=== PATIENT | female | born 1955 | race Caucasian/White ===

== ENCOUNTER 2022-02-12 09:26 | Day surgery (SDC) | payer BC, OTHER ==
[2022-02-05 13:35] VITALS: BMI 35.9
[2022-02-12] MEDS ORDERED: LIDOCAINE HCL/PF 2% SDV 5ML VIAL ONE (10:39)
[2022-02-12] MEDS ORDERED: PROPOFOL 60 ML ONE (10:39)
[2022-02-12] MEDS ORDERED: ONDANSETRON 4 MG/2 ML VIAL ONE (11:46)
[2022-02-12 12:28] VITALS: TEMP 97.4
[2022-02-12 12:31] VITALS: RESP 18
[2022-02-12 12:49] VITALS: BP 118/60; PULSE 58
== END 2022-02-12 12:15 | disposition short-term general hospital (02) ==
LOC: FASU-ENDO 09:26
PROVIDERS: ATTEND Internal Medicine Gastroenterology
PROC: 0DBL8ZX Excision of Transverse Colon, Via Natural or Artificial Opening Endoscopic, Diagnostic (ICD-10-PCS; principal; 2022-02-12 10:38)
DX: Z12.11 Encounter for screening for malignant neoplasm of colon (principal); D12.3 Benign neoplasm of transverse colon; K57.30 Diverticulosis of large intestine without perforation or abscess without bleeding; K64.1 Second degree hemorrhoids; K64.8 Other hemorrhoids
CPT/HCPCS: 82962; 88305-TC

== ENCOUNTER 2022-02-12 12:18 | Emergency (ER) | payer BC, OTHER ==
[2022-02-12 12:41] VITALS: TEMP 97.5; BMI 35.9
[2022-02-12] MEDS ORDERED: SODIUM CHLORIDE 1,000 ML IV STA (13:13)
[2022-02-12] MEDS ORDERED: ACETAMINOPHEN 1000 MG/100 ML BAG IVPB ONE (13:13)
[2022-02-12 13:33] LABS: HEMATOCRIT 45.3 % (32.4-45.2); HEMOGLOBIN 15.4 G/dL (10.7-15.3); MCH 31.8 pg (25.7-33.7); MEAN CELL VOLUME 93.6 fl (80-96); MEAN PLT VOLUME 8.7 fl (7.5-11.1); PLATELET COUNT 173.7 10^3/uL (134-434); RBC 4.84 10^6/uL (3.60-5.2); RDW 13.7 % (11.6-15.6); WHITE BLOOD COUNT 6.6 10^3/uL (4.0-10.8)
[2022-02-12] MEDS ORDERED: ACETAMINOPHEN INJECTION 100 ML IVPB ONE (13:42)
[2022-02-12 13:48] LABS: ALBUMIN 3.6 g/dl (3.4-5.0); BILIRUBIN,TOTAL 0.8 mg/dl (0.2-1); CALCIUM 8.8 mg/dl (8.5-10); CREATININE 0.8 mg/dl (0.55-1.3)
[2022-02-12 15:25] VITALS: BP 120/60; PULSE 58; RESP 20
== END 2022-02-12 15:32 | disposition home or self-care (01) ==
LOC: FER 12:18
PROC: 3E033NZ Introduction of Analgesics, Hypnotics, Sedatives into Peripheral Vein, Percutaneous Approach (ICD-10-PCS; principal; 2022-02-12)
PROC: 3E0337Z Introduction of Electrolytic and Water Balance Substance into Peripheral Vein, Percutaneous Approach (ICD-10-PCS; 2022-02-12)
DX: R55 Syncope and collapse (principal); R10.30 Lower abdominal pain, unspecified
CPT/HCPCS: 36415; 71045-TC-FY; 80053; 84484; 85027; 93005; 93010; 96361; 96374; 99284-25